=== PATIENT | female | born 1970 | race Caucasian/White ===

== ENCOUNTER → 2016-08-09 16:00 | Outpatient (CLI) | payer OTHER | END | disposition home or self-care (01) | LOC: D.MAMMO 10:15 | DX: Z12.31 Encounter for screening mammogram for malignant neoplasm of breast (principal) ==

== ENCOUNTER 2019-12-31 09:30 | Outpatient (CLI) | payer OTHER | END 2019-12-31 10:30 | disposition home or self-care (01) | LOC: D.MAMMO 09:30 | PROVIDERS: ATTEND Family Medicine | DX: Z12.31 Encounter for screening mammogram for malignant neoplasm of breast (principal) ==